=== PATIENT | female | born 1965 | race Caucasian/White ===

== ENCOUNTER → 2019-12-17 08:53 | Outpatient (BNVA) | payer OTHER, SELFPAY | PROVIDERS: Family Provider Family Medicine; PCP Family Medicine; Visit Provider Internal Medicine Cardiovascular Disease | DX: Z95.2 Presence of prosthetic heart valve (principal) | CPT/HCPCS: 85610 ==

== ENCOUNTER → 2020-01-14 08:08 | Outpatient (BNVA) | payer OTHER, SELFPAY | PROVIDERS: Family Provider Family Medicine; PCP Family Medicine; Visit Provider Internal Medicine Cardiovascular Disease | DX: Z95.2 Presence of prosthetic heart valve (principal) | CPT/HCPCS: 85610 ==

== ENCOUNTER → 2020-02-09 08:32 | Outpatient (BNVA) | payer OTHER, SELFPAY | PROVIDERS: Family Provider Family Medicine; PCP Family Medicine; Visit Provider Internal Medicine Cardiovascular Disease | DX: Z95.2 Presence of prosthetic heart valve (principal) | CPT/HCPCS: 85610 ==

== ENCOUNTER → 2020-02-11 08:39 | Outpatient (BNVA) | payer OTHER, SELFPAY | PROVIDERS: Family Provider Family Medicine; PCP Family Medicine; Referring Provider Family Medicine; Visit Provider Podiatrist Foot & Ankle Surgery | DX: M79.671 Pain in right foot (principal); M79.672 Pain in left foot; M21.41 Flat foot [pes planus] (acquired), right foot; M21.42 Flat foot [pes planus] (acquired), left foot | CPT/HCPCS: 73630 ==

== ENCOUNTER → 2020-02-16 10:49 | Outpatient (BNVA) | payer OTHER, SELFPAY | PROVIDERS: Family Provider Family Medicine; PCP Family Medicine; Visit Provider Internal Medicine Cardiovascular Disease | DX: Z95.2 Presence of prosthetic heart valve (principal) | CPT/HCPCS: 85610 ==

== ENCOUNTER → 2020-03-18 08:39 | Outpatient (BNVA) | payer OTHER, SELFPAY | PROVIDERS: Family Provider Family Medicine; PCP Family Medicine; Visit Provider Internal Medicine Cardiovascular Disease | DX: Z95.2 Presence of prosthetic heart valve (principal) | CPT/HCPCS: 85610 ==

== ENCOUNTER → 2020-03-29 08:36 | Outpatient (BNVA) | payer OTHER, SELFPAY | PROVIDERS: Family Provider Family Medicine; PCP Family Medicine; Visit Provider Internal Medicine Cardiovascular Disease | DX: Z95.2 Presence of prosthetic heart valve (principal) | CPT/HCPCS: 85610 ==

== ENCOUNTER → 2020-04-12 09:13 | Outpatient (BNVA) | payer OTHER, SELFPAY | PROVIDERS: Family Provider Family Medicine; PCP Family Medicine; Visit Provider Internal Medicine Cardiovascular Disease | DX: Z95.2 Presence of prosthetic heart valve (principal) | CPT/HCPCS: 85610 ==

== ENCOUNTER → 2020-05-10 08:43 | Outpatient (BNVA) | payer OTHER, SELFPAY | PROVIDERS: Family Provider Family Medicine; PCP Family Medicine; Visit Provider Internal Medicine Cardiovascular Disease | DX: Z95.2 Presence of prosthetic heart valve (principal); I35.8 Other nonrheumatic aortic valve disorders; Z79.01 Long term (current) use of anticoagulants | CPT/HCPCS: 85610 ==

== ENCOUNTER → 2020-05-31 08:23 | Outpatient (BNVA) | payer OTHER, SELFPAY | PROVIDERS: Family Provider Family Medicine; PCP Family Medicine; Visit Provider Internal Medicine Cardiovascular Disease | DX: Z95.2 Presence of prosthetic heart valve (principal); I35.8 Other nonrheumatic aortic valve disorders; Z79.01 Long term (current) use of anticoagulants | CPT/HCPCS: 85610 ==

== ENCOUNTER → 2020-07-02 08:44 | Outpatient (BNVA) | payer OTHER, SELFPAY | PROVIDERS: Family Provider Family Medicine; PCP Family Medicine; Visit Provider Internal Medicine Cardiovascular Disease | DX: I35.8 Other nonrheumatic aortic valve disorders (principal); Z95.2 Presence of prosthetic heart valve; Z79.01 Long term (current) use of anticoagulants | CPT/HCPCS: 85610 ==

== ENCOUNTER → 2020-08-18 08:54 | Outpatient (BNVA) | payer OTHER, SELFPAY | PROVIDERS: Family Provider Family Medicine; PCP Family Medicine; Visit Provider Internal Medicine Cardiovascular Disease | DX: Z79.01 Long term (current) use of anticoagulants (principal); Z95.2 Presence of prosthetic heart valve | CPT/HCPCS: 85610 ==

== ENCOUNTER 2020-09-01 14:23 | Outpatient (CLI) | payer OTHER, SELFPAY ==
--- NOTE | 2020-09-01 | USCV_ITS ---
Whitney Magallanes Age: 55 Gender: F : 1965 Exam Date: 09/01/2020 14:33 Ordering Phys: Josefa Welch MD ([email or web address]) Technologist: [place] Hawkins Exam Location: [facility] [place] Indication: PROSTHETIC AO VALVE BP: 138 / 80 HR: 87 Rhythm: Sinus Technical Quality: Technically difficult study MEASUREMENTS (Male / Female) Normal Values 2D ECHO LV Diastolic Diameter PLAX 3.3 cm 4.2 - 5.9 / 3.9 - 5.3 cm LV Systolic Diameter PLAX 2.5 cm LV Chamber Size 3.3 cm IVS Diastolic Thickness 1.4 cm 0.6 - 1.0 / 0.6 - 0.9 cm IVS Systolic Thickness 1.4 cm LVPW Diastolic Thickness 1.3 cm 0.6 - 1.0 / 0.6 - 0.9 cm LVPW Systolic Thickness 1.1 cm RV Chamber Size 2.8 cm LVOT Diameter 2.0 cm LV Ejection Fraction 2D Teich 51.6 % LV Ejection Fraction MOD 2C 38.3 % LV Ejection Fraction 2C AL 39.7 % LA Diameter 3.4 cm LA Width 3.2 cm LA Height 4.5 cm RA Width 2.7 cm RA Height 3.6 cm Aorta at Sinotubular Diameter 2.1 cm M-MODE LV Diastolic Diameter MM 3.5 cm 4.2 - 5.9 / 3.9 - 5.3 cm LV Systolic Diameter MM 2.3 cm LV Ejection Fraction MM Teich 67.0 % IVS Diastolic Thickness MM 1.0 cm 0.6 - 1.0 / 0.6 - 0.9 cm IVS Systolic Thickness MM 1.2 cm LVPW Diastolic Thickness MM 1.0 cm 0.6 - 1.0 / 0.6 - 0.9 cm LVPW Systolic Thickness MM 1.2 cm RV Diastolic Diameter MM 1.3 cm Aortic Annulus Diameter 3.8 cm LA Ao Ratio MM 1.0 MV E Point Septal Separation 0.9 cm DOPPLER AV Peak Velocity 287.0 cm/s LVOT Peak Velocity 130.0 cm/s AV Area Cont Eq vti 1.8 cm squared AV Area Cont Eq pk 1.5 cm squared MV Area PHT 11.0 cm squared Mitral E to A Ratio 0.9 MV E' Velocity 76.0 cm/s Mitral E to MV E' Ratio 11.7 Mitral E to LV E' Lateral Ratio 11.0 Mitral E to LV E' Septal Ratio 12.7 TR Peak Velocity 177.8 cm/s TR Peak Gradient 12.6 mmHg TR Mean Velocity 119.5 cm/s TR Mean Gradient 6.3 mmHg TR Velocity Time Integral 39.3 cm TV Peak E Velocity 74.0 cm/s Right Atrial Pressure 3.0 mmHg Pulmonary Artery Systolic Pressu 15.6 mmHg PV Peak Velocity 69.0 cm/s RV Acceleration Time 0.1 s RV Ejection Time 0.3 s RV AcT/ET 0.3 FINDINGS Left Ventricle Normal left ventricular cavity size. Normal left ventricular systolic function. No regional wall motion abnormalities. Left ventricular ejection fraction is estimated at 67 %. Grade I/IV diastolic dysfunction (abnormal relaxation filling pattern), normal to mildly elevated filling pressures. Right Ventricle The right ventricle is normal in size and function. Right Atrium The right atrium is normal in size. Left Atrium Mildly increased left atrial size. Mitral Valve Moderately thickened mitral valve. No mitral valve stenosis. No mitral valve regurgitation. Aortic Valve Bioprosthetic aortic valve sitting in normal position . Mean gradient 16.2 mmHg, RC 1.8 cm squared. Trace aortic valve regurgitation. Velocity across the aortic valve is 2.8m/s. Tricuspid Valve Structurally normal tricuspid valve without significant stenosis or regurgitation. Pulmonary artery systolic pressure is normal. Pulmonic Valve Structurally normal pulmonic valve without significant stenosis. There is no pulmonic regurgitation. Pericardium Normal pericardium without effusion. Aorta Normal ascending aorta dimension. CONCLUSIONS 1-Normal left ventricular cavity size. Normal left ventricular systolic function. No regional wall motion abnormalities. Left ventricular ejection fraction is estimated at 67 %. Grade I/IV diastolic dysfunction (abnormal relaxation filling pattern), normal to mildly elevated filling pressures. 2-Bioprosthetic aortic valve sitting in normal position . Mean gradient 16.2 mmHg, RC 1.8 cm squared. Trace aortic valve regurgitation. Velocity across the aortic valve is 2.8m/s. 3-Mildly increased left atrial size. 4-There is no pericardial effusion. 5-Pulmonary artery systolic pressure is within normal limits. 6-No significant change since the prior echocardiogram study of 03/22/2017. Josefa Welch MD (Electronically Signed) Final Date: 05 September 2020 16:24 S
== END 2020-09-01 14:24 | disposition home or self-care (01) ==
PROVIDERS: PCP Family Medicine; Visit Provider Internal Medicine Cardiovascular Disease
DX: Z95.2 Presence of prosthetic heart valve (principal); I35.1 Nonrheumatic aortic (valve) insufficiency; Z79.01 Long term (current) use of anticoagulants
CPT/HCPCS: 85610; 93306

== ENCOUNTER → 2020-09-15 08:24 | Outpatient (BNVA) | payer OTHER, SELFPAY | PROVIDERS: PCP Family Medicine; Visit Provider Internal Medicine Cardiovascular Disease | DX: Z95.2 Presence of prosthetic heart valve (principal); Z79.01 Long term (current) use of anticoagulants | CPT/HCPCS: 85610 ==

== ENCOUNTER → 2020-10-21 08:56 | Outpatient (BNVA) | payer OTHER, SELFPAY | PROVIDERS: PCP Family Medicine; Visit Provider Obstetrics & Gynecology | DX: N89.8 Other specified noninflammatory disorders of vagina (principal); N76.2 Acute vulvitis | CPT/HCPCS: 87210 ==

== ENCOUNTER → 2020-11-18 08:58 | Outpatient (BNVA) | payer OTHER, SELFPAY | PROVIDERS: PCP Family Medicine; Visit Provider Obstetrics & Gynecology | DX: N92.4 Excessive bleeding in the premenopausal period (principal); N85.9 Noninflammatory disorder of uterus, unspecified | CPT/HCPCS: 76830 ==

== ENCOUNTER → 2020-12-15 07:17 | Outpatient (BNVA) | payer OTHER, SELFPAY | PROVIDERS: PCP Family Medicine; Visit Provider Obstetrics & Gynecology | DX: Z01.812 Encounter for preprocedural laboratory examination (principal); N76.3 Subacute and chronic vulvitis; N92.4 Excessive bleeding in the premenopausal period | CPT/HCPCS: 87635 ==

== ENCOUNTER 2020-12-21 12:19 | Observation (INO) | payer OTHER, SELFPAY ==
[2020-12-17 12:27] VITALS: BMI 31.9
[2020-12-17 12:35] LABS: Basophils # 0.1 10^3/uL (0.0-0.1); Basophils % 1.3 %; Eosinophils # 0.4 10^3/uL (0.0-0.8); Eosinophils % 5.5 %; Hematocrit 44.3 % (37.0-47.0); Hemoglobin 13.7 g/dL (11.5-15.3); Lymphocytes # 1.2 10^3/uL (0.8-4.8); Lymphocytes % 15.9 %; Mean Corpuscular HGB Conc 30.9 g/dL (30.0-36.0); Mean Corpuscular Volume 90.4 fL (81-99); Mean Platelet Volume 13.6 fL (7.4-10.4); Monocytes # 0.5 10^3/uL (0.2-0.9); Monocytes % 5.8 %; Neutrophils # 5.56 10^3/uL (1.8-7.7); Neutrophils % 71.2 %; Nucleated Red Blood Cells % 0 %; Platelet Count 244 10^3/cmm (130-400); Red Cell Distribution Width 13.8 % (12.1-15.1); White Blood Count 7.8 10^3/uL (4.0-10.0)
[2020-12-17 12:36] LABS: OR HCG Qualitative Urine Negative (Negative)
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
[2020-12-17 12:50] LABS: Anion Gap 11.4 (5-19); Blood Urea Nitrogen 14 mg/dL (6-20); Calcium 9.3 mg/dL (8.5-10.5); Carbon Dioxide 27 mmol/L (22-29); Chloride 102 mmol/L (98-107); Glomerular Filtration Rate 74.7 mL/min (90-130); Glucose 83 mg/dL (65-115); Osmolality Calculated 282 mOsm/kg (285-295); Potassium 4.4 mmol/L (3.5-5.1); Sodium 136 mmol/L (136-145)
[2020-12-21] VITALS (17 sets, daily range): BP systolic 128–160; BP diastolic 73–92; PULSE 73–102; RESP 12–18; TEMP 36.3–36.9; O2SAT 92–100
[2020-12-21 09:01] LABS: OR HCG Qualitative Urine Negative (Negative)
[2020-12-21] MEDS: sodium chloride 0.9% 1,000 ML 30 ML IV (09:13)
[2020-12-21] MEDS: gabapentin 300 mg Capsule PO ×2 (09:13→20:29)
[2020-12-21] MEDS: ketorolac 30 mg/mL INJ IVP ×2 (09:16→15:13)
[2020-12-21] MEDS: heparin 5,000 unit/mL INJ 1 mL 5000 UNIT SUBCUT (09:18)
[2020-12-21] MEDS: phenazopyridine 100 mg Tablet 200 MG PO ×3 (09:29→20:28)
--- NOTE | 2020-12-21 09:29 | P.HPUD_ITS ---
Surgery/Procedure H&P Update DATE OF PROCEDURE: December 21, 2020 DATE H&P PERFORMED: 12/17/20 H&P UPDATE INFORMATION: I have reviewed H&P completed within last 30 days, I have examined patient prior to procedure, No changes to prior documentation and H&P is in [facility] [place] EMR on date indicated PREOP DIAGNOSIS: Abnormal perimenopausal bleeding, Vulvitis PLANNED PROCEDURE: Operation Date: 12/21/20 10:00 Proposed Procedures p Total Laparoscopic Hysterectomy [id number] N92.4 N76.2(Not Applicable) - Roman Denise MD s bilateral Laparoscopic Salpingo Oophorectomy with possible vulvar biopsy(Bilateral) - Roman Denise MD
--- NOTE | 2020-12-21 09:32 | P.ANESUD_ITS ---
Pre-Anesthetic Update Pre-Anesthetic Assessment: Date of Surgery/Procedure: 12/21/20 Preop Rosanna gnosis: Abnormal perimenopausal bleeding, Vulvitis Proposed Procedure: Operation Date: 12/21/20 10:00 Proposed Procedures p Total Laparoscopic Hysterectomy 29299 [id number] N92.4 N76.2(Not Applicable) - Roman Denise MD s bilateral Laparoscopic Salpingo Oophorectomy with possible vulvar biopsy(Bilateral) - Roman Denise MD Any changes to Pre-Anesthetic Assessment?: No Last Intake: Intake Last Liquid Date 12/20/20 Last Liquid Time 18:30 Last Solid Date 12/20/20 Last Solid Time 18:30 Labs Last 48hrs: Laboratory Results - last 48 hr 12/21/20 08:59 Urine HCG, Qual Negative Vitals: Temperature 97.7 F 12/21/20 08:57 Temperature Source Temporal Artery S can 12/21/20 08:57 Pulse Rate 97 12/21/20 08:57 Pulse Rhythm 12/21/20 08:55 Pulse Strength 3+ Normal 12/21/20 08:55 Respiratory Rate 18 12/21/20 08:57 Blood Pressure 160/92 12/21/20 08:57 Blood Pressure Lisa n 114 12/21/20 08:57 Pulse Oximetry 97 12/21/20 08:57 Oxygen Delivery Me thod 12/21/20 08:57 Exam: Pre-Anes Outpt Exam: alert, oriented x 3, clear to auscultation bilaterally and regular rate & rhythm Cardiac Studies: 2 No Data to Display
--- NOTE | 2020-12-21 11:13 | SUR.OPER ---
Called and notified spouse of surgical progress.
--- NOTE | 2020-12-21 12:13 | P.OP_ITS ---
Operative Report Date of procedure: December 21, 2020 Pre-op Diagnosis: Abnormal perimenopausal bleeding, Vulvitis Post-op Diagnosis: Abnormal perimenopausal bleeding, Vulvitis Procedure Done: Total laparoscopic hysterectomy with bilateral salpingo- oophorectomy Specimens removed/disposition: Uterus, cervix, bilateral tubes and ovaries. Surgeon: Roman Denise Anesthesia: General Estimated blood loss (mL): 50 IV fluids (mL): 1,300 Complications: None Findings: Minimal to no uterine prolapse. Narrow vagina. Left cornual fibroid noted. Portions of right and left fallopian tube surgically absent. Scarring on the anterior lower uterine segment with findings suspicious for old endometriosis. Whitish skin discoloration with thin skin that tore easily around the urethra and extending up to the clitoral area. Area appears consistent with lichen sclerosis. Brief History: 55-year-old nulligravida status post endometrial ablation in 2012. She had had no bleeding since the ablation until approximately 1 year ago when she started having initially spotting off and on which had become a little more heavier. Typically the bleeding will last for 1 to 2 days occurring at least every week. She reports no definite pattern to the bleeding. Because of the ablation, evaluation of the endometrial lining was not possible and as a result recommendation was to proceed with a hysterectomy. Procedure: The patient was taken to the operating room where general anesthesia was obtained. She was prepped and draped in the usual sterile fashion in the dorsal supine position with legs in Jermaine style stirrups. Sequential compression boots were placed prior to starting the case. Cool catheter was inserted and exam under anesthesia was performed. She was found to have minimal to no uterine prolapse. She had a very narrow vagina. Whitish skin discoloration present sandor und the urethra and extending up to the periclitoral area. Whitish discoloration also present along the labia minora and extending to the perineal area. This is all consistent with lichen sclerosis. Using handheld retractors, the cervix was able to be visualized and grasped with a single-tooth tenaculum. FS-30 Fornisee uterine manipulator was placed with difficulty due to the narrow vagina. The infraumbilical region was injected with 2% lidocaine with epinephrine. Skin incision was made with a knife in the lower edge of the navel and a size 10/11 trocar and sheath were inserted under direct visualization using an Optiview type technique. Trocar was removed and replaced with just the laparoscope confirming intra-abdominal placement. The anterior abdominal wall was inspected and noted to be free of adhesions. In the right and left lower quadrants, lateral to the inferior epigastric vessels, the skin was injected with 2% lidocaine with epinephrine. Skin incisions were made with the knife and a 5 mm trocar and sheath were inserted under direct visualization at each site. Approximately 2 cm above the pubic symphysis in the midline, the skin was injected with 2% lidocaine with epinephrine. Skin incision was made with a knife and a 5 mm trocar and sheath were inserted under direct visualization. The pelvis was thoroughly inspected. Midportion of both fallopian tubes were surgically absent. She had scarring with powder burn lesion in the anterior lower uterine segment area of the uterus consistent with endometriosis. An inclusion type cyst was also noted adjacent to this. No other areas of definite endometriosis were seen. Using the Voyant sealing device, the left infundibulopelvic ligament was sealed and cut and the dissection carried along the underlying mesovarian and mesosalpinx until the round ligament was reached adjacent to the uterus. The round ligament was cauterized and cut and the dissection carried along the lateral aspect of the uterus to approximately the level of the internal os. The broad ligament was and dissection carried over the lower uterine segment. Using the Voyant sealingdevice, the right infundibulopelvic ligament was sealed and cut and the dissection carried along the underlying mesovarium and mesosalpinx until the round ligament was reached adjacent to the uterus. The round ligament was cauterized and cut and the dissection carried along the lateral aspect of the uterus to approximate the level of the internal os. The broad ligament was and the dissection carried over the lower uterine segment to meet with the dissection from the contralateral side. The bladder was dissected away from the lower uterine segment. The uterine vessels were sealed at the level of the cervix and cut bilaterally. Using monopolar cautery with the hook attachment, the vagina was opened anteriorly to the edge of the cup of the uterine manipulator. Using the cup as a guide, the vagina was opened circumferentially around the cervix. Once the cervix was completely free from the vagina, the uterus was removed through the vagina. Minimal bleeding was present from the vaginal cuff. Using 2-0 PDS barbed suture, the cuff was closed in a running fashion . This was started on the right side and was carried across to the left side. Care was taken to incorporate the peritoneum posteriorly and the vaginal mucosa anteriorly and posteriorly into the closure. The anterior peritoneum at the vaginal cuff was closed over top of the vaginal cuff itself using the 2-0 PDS suture. The cuff was noted to be hemostatic. The pelvis was thoroughly irrigated and noted to be hemostatic except for a small area of bleeding just outside of the sutured area on the left side. Area was cauterized with monopolar cautery. It continued to ooze in the area and direct pressure was held to the area for approximately 5 minutes. Small trickle was still present but by the time the rest of the pelvis was thoroughly inspect ed again it had stopped bleeding. However, as a precautionary measure, Surgicel was placed over the area as well. The areas of dissection were inspected under normal and low pressure at the end of the procedure. The abdomen was deflated and the ports removed. The 5 mm sites were closed with single stitches of 4-0 Vicryl suture. The umbilical site was closed with a deep stitch of 4-0 Vicryl suture followed by subcuticular closure of the skin. Steri-Strips were applied. The vagina was inspected and the cuff was noted to be reapproximated well. The cuff itself was noted to be hemostatic vaginally. Patient tolerated the procedures well. Sponge needle and instrument counts were correct. DRAINS: Cool catheter POSTOPERATIVE STATUS: The patient was transferred to the recovery room in satisfactory condition.
--- NOTE | 2020-12-21 13:05 | PC.NURSE ---
pt received to floor from OR. pt moved self to bed. oriented to room/call light. instructed not to get out of bed without assistance.
[2020-12-21] MEDS: simethicone 80 mg Chew PO (14:03)
[2020-12-21] MEDS: morphine 4 mg/mL SDV 1 mL IVP (14:03)
[2020-12-21] MEDS: dextrose 5%-lactated ringers 1,000 ML 125 ML IV (15:21)
[2020-12-21] MEDS: HYDROcodone-acetaminophen 5-325 mg Tablet PO (16:21)
--- NOTE | 2020-12-21 16:39 | ANE.PACU2 ---
Inpatient post-anesthesia follow up: Airway intact: Yes Vital signs: Temperature 98.4 F Pulse Rate 102 Respiratory Rate 16 Blood Pressure 147/81 Pulse Oximetry 99 Oxygen Delivery Me thod Room Air Oxygen Flow Rate 8 Fraction of Inspir ed Oxygen Hydration adequate: Yes Nausea and vomiting: No Pain level: 1 Mental status: Baseline
[2020-12-21] MEDS: ondansetron 2 mg/ML SDV 2 mL 4 MG IVP (17:15)
[2020-12-21] MEDS: ibuprofen 800 mg tablet PO (20:28)
[2020-12-21] MEDS: enoxaparin 80 mg/0.8 mL Syringe SUBCUT (20:30)
[2020-12-22] MEDS: dextrose 5%-lactated ringers 1,000 ML 125 ML IV (01:10)
[2020-12-22 04:00] VITALS: BP 120/79; PULSE 90; RESP 16; TEMP 36.7
[2020-12-22 06:39] LABS: Hematocrit 39.2 % (37.0-47.0); Hemoglobin 12.3 g/dL (11.5-15.3); Mean Corpuscular HGB Conc 31.4 g/dL (30.0-36.0); Mean Corpuscular Hemoglobin 28.5 pg (28.0-34.0); Mean Corpuscular Volume 90.7 fL (81-99); Mean Platelet Volume 14.1 fL (7.4-10.4); Platelet Count 180 10^3/cmm (130-400); Red Blood Count 4.32 10^6/uL (4.1-5.3); Red Cell Distribution Width 14.2 % (12.1-15.1); White Blood Count 10.6 10^3/uL (4.0-10.0)
[2020-12-22] MEDS: enoxaparin 80 mg/0.8 mL Syringe SUBCUT (08:03)
[2020-12-22] MEDS: phenazopyridine 100 mg Tablet 200 MG PO (08:03)
[2020-12-22] MEDS: ibuprofen 800 mg tablet PO (08:03)
[2020-12-22] MEDS: levothyroxine 75 mcg Tablet PO (08:03)
[2020-12-22 08:10] VITALS: BP 127/82; PULSE 102; RESP 15
--- NOTE | 2020-12-22 09:09 | P.DS_ITS ---
Discharge Providers Date of Admission: 12/21/20 12:19 Date of Discharge: December 22, 2020 Attending Provider at Admission: Roman Denise MD Attending Provider at Discharge: Roman Denise MD Primary Care Provider: Elizabet Rodriguez MD Diagnoses at Discharge Discharge Diagnosis (1) Abnormal perimenopausal bleeding: Status: Acute (2) Chronic anticoagulation: Status: Acute (3) H/O mechanical aortic valve replacement: Status: Acute Permanent problem details: hx of bicuspid aortic valve, severe aortic stenosis. Replaced with St Calos 21 mm mechanical valve by Dr. Denton on 12/27/2012 Reason for Visit Reason for Visit: total lap hysterectomy Hospital Course Hospital Course Patient is a 55-year-old, female, nulligravida, who is status post endometrial ablation in 2012. Following the ablation, she had had no vaginal bleeding until approximately 1 year ago when she started having spotting off and on. This is now become heavier with no pattern to the bleeding. She says she will bleed at least once a week with the bleeding lasting 1 to 2 days at a time. Ultrasound had been performed which showed a very distorted endometrial lining with findings suspicious for fibroids. Because of the ablation, endometrial sampling is unable to be performed to rule out cancer as a potential cause for the abnormal bleeding. As a result, hysterectomy is recommended and she is presenting for that at this time. In addition she was being treated for chronic vulvitis, suspected as being lichen sclerosis. Potential need for biopsies had been discussed in the office and depending upon the appearance at the time of her scheduled surgery, biopsy may be performed at that time. In addition, she is on chronic anticoagulation due to having a mechanical aortic valve. As a result, she was switched from her Coumadin to Lovenox prior to surgery. Her last dose of Lovenox was the night before surgery. Patient presented for surgery on 12/21. She received subcu heparin approximately 30 minutes before surgery. She had a total laparoscopic hysterectomy with bilateral salpingo-oophorectomy. Vulvar biopsies were not needed. Following surgery, she was doing well overall. However, she was still nauseated in the evening and as a result was kept through the night. She was restarted on Lovenox in the evening. Postoperative Day 1 This morning, patient reports doing well. She states that her pain is well controlled with pain pills. She denies any lightheadedness or dizziness with ambulation. She denied any shortness of breath or chest pains. She reports tolerating a regular diet this morning without nausea or vomiting. She denies any problems with urination following removal of the catheter early this morning. She is requesting to go home. Physical exam: See below Plan Patient is being restarted on her usual regimen of Coumadin this evening. She will be continued on Lovenox for 3 more days. She was instructed to resume her other usual home medications. She is being prescribed [place] 5/325 mg and ibuprofen 800 mg for pain. Discharge to home. Discharge instructions discussed with patient. She is to follow-up in the office in 2 and 6 weeks. Physical Exam Const: COMMON NORMALS: no acute distress, average body habitus, alert and well nourished GENERAL APPEARANCE: well developed ORIENTATION/CONSCIOUSNESS: Yes oriented to person, Yes oriented to place and Yes oriented to time Resp: COMMON NORMALS: normal respiratory effort and clear to auscultation bilaterally AUSCULTATION: clear to auscultation bilaterally Cardio: COMMON NORMALS: regular rate, regular rhythm, No gallops present (Cardio), No murmurs present (Cardio) and No rub (Cardio) RATE: regular rate RHYTHM: regular rhythm GI: COMMON NORMALS: Soft to palpation, No hepatosplenomegaly present and no masses INSPECTION: Yes abdominal wall ecchymosis (At Lovenox injection sites and trocar sites.) and Yes incision (Well approximated with skin glue present.) AUSCULTATION: Yes normoactive bowel sounds PALPATION: Yes Soft to palpation, Yes Tenderness to palpation present (GI) (Lower abdomen), Yes No hepatosplenomegaly present and No Hernia present : EXTERNAL FEMALE EXAM: No Hernia present Extremity: COMMON NORMALS: no clubbing, cyanosis or edema and no calf tenderness Neuro: SENSORIUM/ORIENTATION: Yes alert, Yes oriented to person, Yes oriented to place and Yes oriented to time Psych: COMMON NORMALS: normal affect MOOD & AFFECT: Yes euthymic mood Urinary Catheter Management^: Cool: Cath Placed During This Visit: yes, but has since been removed by the nurse Reason for Continuing Indwelling Catheter: Perioperative Use in Selected Surgeries Urinary Catheter Date of Insertion: 12/21/20 Urinary Catheter Time of Insertion: 10:10 Date Urinary Catheter Removed: 12/22/20 Time Urinary Catheter Discontinued: 03:00 Discharge Data Data Completed and Pending: Pending at discharge Category Date Time Status ES surgery / GI i mages Routine Exams 12/21/20 09:33 Taken Pathology: Surgic al [PTH] Routine Pth 12/21/20 12:28 Received Labs from last 24 hours 12/22/20 12/21/20 05:15 09:09 WBC 10.6 H RBC 4.32 Hgb 12.3 Hct 39.2 MCV 90.7 MCH 28.5 MCHC 31.4 RDW 14.2 Plt Count 180 MPV 14.1 H Blood Type A Positive Rho(D) Type Positive Antibody Screen Negative Vitals: Last Vital Signs Temp 98.0 F 12/22/20 04:00 Pulse 102 H 12/22/20 08:10 Resp 15 12/22/20 08:10 BP 127/82 12/22/20 08:10 Pulse Ox 98 12/21/20 18:41 Discharge Plan Discharge Patient Disposition: Home Condition: Stable Prescriptions: New hydrocodone-acetaminophen 5-325 mg Tablet 1 - 2 tab PO Q6H PRN (Reason: Moderate To Severe Pain) Qty: 20 RF: 0 Continued aspirin 81 mg tablet,chewable 81 mg PO ONCE RF: 0 levothyroxine 75 mcg capsule 75 mcg PO ONCE RF: 0 gabapentin 300 mg capsule 300 mg PO .hs RF: 0 simvastatin 40 mg tablet 40 mg PO ONCE RF: 0 cyclobenzaprine 5 mg tablet 5 mg PO .hs RF: 0 clobetasol [Temovate] 0.05 % cream 1 applic topical BID Qty: 45 RF: 12 enoxaparin [Lovenox] 80 mg/0.8 mL syringe 80 mg SUBCUT Q12H Qty: 8 RF: 0 Coumadin 4 mg Tablet 4 mg PO DAILY RF: 0 Coumadin 5 mg Tablet 5 mg PO QPM RF: 0 Discharge Orders: Discharge Order (Routine); Ordered 12/22/20 Ordered By: Roman Denise Referrals: Roman Denise MD [Physician] - 01/05/21 9:45 am (* Your incision check is with Dr. Denise on 01/05/2021 at 9:45am. * Your 6 week follow up appointment is with Dr. Denise on 02/02/2021 at 9:45am) Discharge Diet: Regular Discharge Activity: Limit activity as instructed Patient Instructions: Laparoscopically Assisted Vaginal Hysterectomy (DC), Laparoscopic Salpingo-oophorectomy (DC), Laparoscopic Hysterectomy (DC), OB Abdominal Surgery - [facility], OB Discharge Report, OB Food/Drug Interaction Guide Activity Restrictions/Additional Instructions: Take [id number] ibuprofen 200 mg, 3 tablets 4 times a day or 4 tablets 3 times a day, as needed for pain. Discharge Attestations Time Spent in Discharge Care*: less than 30 min Quality Metrics Clinical Quality Measures During this hospital stay, did patient experience: None Coding Level of Care Code Acute Weighbridge Operator for Chg Fwd Diagnoses Abnormal perimenopausal bleeding N92.4 Chronic anticoagulation Z79.01 H/O mechanical aortic valve replacement Z95.2
[2020-12-22 10:54] VITALS: BP 135/82; PULSE 111; RESP 17; O2SAT 99
[2020-12-22 11:20] VITALS: BP 135/82; PULSE 111; RESP 17; TEMP 36.7; O2SAT 99
== END 2020-12-22 11:10 | disposition home or self-care (01) ==
LOC: OBGYN 12:19
PROVIDERS: Admitting Provider Obstetrics & Gynecology; PCP Family Medicine; Visit Provider Obstetrics & Gynecology
PROC: 0UT94ZZ Resection of Uterus, Percutaneous Endoscopic Approach (ICD-10-PCS; CPT 58571; principal; 2020-12-21 10:00)
PROC: (CPT 58661; 2020-12-21 10:00)
DX: N92.4 Excessive bleeding in the premenopausal period (principal); Z95.2 Presence of prosthetic heart valve; Z79.01 Long term (current) use of anticoagulants
CPT/HCPCS: 58571; 12345; 36415; 80048; 81025; 84703; 85025; 85027; 86850; 86900; 87086; 88307; 96372; G0378; J0131; J0690; J1644; J1650; J1885; J2250; J2270; J2405; J2704; J2710; J3010; J3490; J7030

== ENCOUNTER → 2021-05-04 11:25 | Outpatient (BNVA) | payer OTHER, SELFPAY | PROVIDERS: PCP Family Medicine; Visit Provider Nurse Practitioner Women's Health | DX: R30.0 Dysuria (principal); N76.0 Acute vaginitis; B96.89 Other specified bacterial agents as the cause of diseases classified elsewhere; N89.8 Other specified noninflammatory disorders of vagina; N76.3 Subacute and chronic vulvitis; Q52.5 Fusion of labia; Z79.01 Long term (current) use of anticoagulants | CPT/HCPCS: 81000; 87077; 87086; 87184 ==

== ENCOUNTER → 2021-05-24 09:00 | Outpatient (BNVA) | payer OTHER, SELFPAY | PROVIDERS: PCP Family Medicine; Visit Provider Internal Medicine Cardiovascular Disease | DX: Z95.2 Presence of prosthetic heart valve (principal); Z79.01 Long term (current) use of anticoagulants | CPT/HCPCS: 85610 ==

== ENCOUNTER → 2021-05-31 08:27 | Outpatient (BNVA) | payer OTHER, SELFPAY | PROVIDERS: PCP Family Medicine; Visit Provider Internal Medicine Cardiovascular Disease | DX: Z79.01 Long term (current) use of anticoagulants (principal); Z95.2 Presence of prosthetic heart valve | CPT/HCPCS: 85610 ==

== ENCOUNTER → 2021-06-02 17:03 | Outpatient (BNVA) | payer OTHER, SELFPAY | PROVIDERS: PCP Family Medicine; Visit Provider Obstetrics & Gynecology | DX: L90.0 Lichen sclerosus et atrophicus (principal) | CPT/HCPCS: 88305 ==

== ENCOUNTER → 2021-08-03 10:31 | Outpatient (BNVA) | payer OTHER, SELFPAY | PROVIDERS: PCP Family Medicine; Visit Provider Nurse Practitioner Family | DX: Z20.822 Contact with and (suspected) exposure to COVID-19 (principal) | CPT/HCPCS: 87635 ==

== ENCOUNTER 2021-08-05 09:51 | Outpatient (CLI) | payer OTHER, SELFPAY ==
[2021-08-05 10:15] VITALS: BP 115/76; PULSE 92; RESP 16; TEMP 37; O2SAT 97; BMI 30.9
[2021-08-05 10:44] VITALS: BP 104/71; PULSE 88; RESP 18; TEMP 37.1; O2SAT 93
[2021-08-05 11:46] VITALS: BP 117/68; PULSE 91; RESP 18; TEMP 36.9; O2SAT 93
--- NOTE | 2021-08-15 17:50 | PC.SOCIAL ---
63-8, 3891 antibody infusion follow up call: symptoms prior to infusion: fever, nausea, exhaustion, headache, no taste patient reports she remains tired but other symptoms have improved.
== END 2021-08-05 09:52 | disposition home or self-care (01) ==
LOC: OPS 09:52
PROVIDERS: PCP Family Medicine; Visit Provider Nurse Practitioner Family
DX: U07.1 COVID-19 (principal)
CPT/HCPCS: 96365

== ENCOUNTER → 2022-12-19 08:11 | Outpatient (BNVA) | payer OTHER, SELFPAY | PROVIDERS: PCP Family Medicine; Visit Provider Internal Medicine Cardiovascular Disease | DX: Z95.2 Presence of prosthetic heart valve (principal) | CPT/HCPCS: 85610 ==

== ENCOUNTER → 2023-01-09 09:30 | Outpatient (BNVA) | payer OTHER, SELFPAY | PROVIDERS: PCP Family Medicine; Visit Provider Surgery | DX: R10.9 Unspecified abdominal pain (principal); K56.7 Ileus, unspecified | CPT/HCPCS: 74018 ==

== ENCOUNTER → 2023-01-16 08:13 | Outpatient (BNVA) | payer OTHER, SELFPAY | PROVIDERS: PCP Family Medicine; Visit Provider Internal Medicine Cardiovascular Disease | DX: Z95.2 Presence of prosthetic heart valve (principal) | CPT/HCPCS: 85610 ==

== ENCOUNTER → 2023-02-12 08:19 | Outpatient (BNVA) | payer OTHER, SELFPAY | PROVIDERS: PCP Family Medicine; Visit Provider Internal Medicine Cardiovascular Disease | DX: Z95.2 Presence of prosthetic heart valve (principal) | CPT/HCPCS: 85610 ==

== ENCOUNTER → 2023-03-14 08:53 | Outpatient (BNVA) | payer OTHER, SELFPAY | PROVIDERS: PCP Family Medicine; Visit Provider Internal Medicine Cardiovascular Disease | DX: Z95.2 Presence of prosthetic heart valve (principal) | CPT/HCPCS: 85610 ==

== ENCOUNTER 2023-03-28 09:25 | Outpatient (CLI) | payer OTHER, SELFPAY ==
--- NOTE | 2023-03-28 09:42 | XRR_ITS ---
PROCEDURE INFORMATION: Exam: XR Lumbosacral Spine Exam date and time: 03/28/2023 9:44 AM Age: 57 years old Clinical indication: Low back pain; Additional info: Dorsalgia, unspecified TECHNIQUE: Imaging protocol: Radiologic exam of the lumbosacral spine. Views: 4 or 5 views. Total images: 5 COMPARISON: CT chest abdpel w/*[id number] 12/07/2016 3:11 PM FINDINGS: Bones/joints: L2-L3 degenerative disc disease with disc space narrowing and osteophyte formation. This finding is stable when compared to the prior exam. Vertebral body heights are maintained. No evidence of spondylolysis nor spondylolisthesis. Mild disc space height loss at L5/S1. This finding is stable when compared to the prior exam. Soft tissues: Unremarkable. XR/XR lumbar spine min 4V [id number] IMPRESSION: Degenerative changes as described above but no acute pathology detected.
== END 2023-03-28 09:26 | disposition home or self-care (01) ==
PROVIDERS: PCP Family Medicine; Visit Provider Family Medicine
DX: M51.36 Other intervertebral disc degeneration, lumbar region (principal); M48.061 Spinal stenosis, lumbar region without neurogenic claudication
CPT/HCPCS: 72110

== ENCOUNTER → 2023-04-11 08:12 | Outpatient (BNVA) | payer OTHER, SELFPAY | PROVIDERS: PCP Family Medicine; Visit Provider Internal Medicine Cardiovascular Disease | DX: Z95.2 Presence of prosthetic heart valve (principal) | CPT/HCPCS: 85610 ==

== ENCOUNTER → 2023-04-17 09:28 | Outpatient (BNVA) | payer OTHER, SELFPAY | PROVIDERS: PCP Family Medicine; Visit Provider Internal Medicine Cardiovascular Disease | DX: Z95.2 Presence of prosthetic heart valve (principal) | CPT/HCPCS: 85610 ==

== ENCOUNTER → 2023-05-24 09:11 | Outpatient (BNVA) | payer OTHER, SELFPAY | PROVIDERS: PCP Family Medicine; Visit Provider Internal Medicine Cardiovascular Disease | DX: Z95.2 Presence of prosthetic heart valve (principal) | CPT/HCPCS: 85610 ==

== ENCOUNTER → 2023-06-21 08:55 | Outpatient (BNVA) | payer OTHER, SELFPAY | PROVIDERS: PCP Family Medicine; Visit Provider Internal Medicine Cardiovascular Disease | DX: Z95.2 Presence of prosthetic heart valve (principal) | CPT/HCPCS: 85610 ==

== ENCOUNTER 2023-06-27 08:43 | Outpatient (CLI) | payer OTHER, SELFPAY ==
--- NOTE | 2023-06-27 09:10 | MM_ITS ---
WS: [email or web address] BILATERAL SCREENING DIGITAL TOMOSYNTHESIS MAMMOGRAM WITH CAD HISTORY: Z12.39 - Encounter for other screening for malignant neop... COMPARISON: 01/28/2019, 08/14/2018 Bilateral CC and MLO views with tomosynthesis and synthetic mammography submitted. Computer aided det ection analyzed. Breast composition: There are scattered areas of fibroglandular density. Focal architectural distorti on and scarring in the anterior right breast is stable from prior trauma. Benign calcifications. IMPRESSION: MM/[place] [id number] BI-RADS: 2-Benign FOLLOW UP: 1 Year Follow-up
== END 2023-06-27 08:44 | disposition home or self-care (01) ==
PROVIDERS: PCP Family Medicine; Visit Provider Nurse Practitioner Women's Health
DX: Z12.31 Encounter for screening mammogram for malignant neoplasm of breast (principal)
CPT/HCPCS: 77063; 77067

== ENCOUNTER → 2023-07-19 08:11 | Outpatient (BNVA) | payer OTHER, SELFPAY | PROVIDERS: PCP Family Medicine; Visit Provider Internal Medicine Cardiovascular Disease | DX: Z95.2 Presence of prosthetic heart valve (principal) | CPT/HCPCS: 85610 ==

== ENCOUNTER 2023-08-14 14:52 | Outpatient (CLI) | payer OTHER, SELFPAY ==
--- NOTE | 2023-08-14 14:57 | CT_ITS ---
WS: [email or web address] CT ABDOMEN PELVIS TECHNIQUE: Contrast-enhanced CT of the abdomen and pelvis with coronal and sagittal reformatted image s. CLINICAL INFORMATION: CHRONIC ABDOMINAL PAIN AFTER HYSTERECTOMY COMPARISON: 2017 DLP: 603.[address] scans at [facility] use at least one of these dose optimization techniques: automated e xposure control; mA and/or kV adjustment per patient size (includes targeted exams where dose is matc hed to clinical indication); or iterative reconstruction. FINDINGS: Lung bases are well aerated. Diffuse fatty filtration of the liver. Normal portal vein and splenic ve in. Fatty atrophy of the pancreas. Gallbladder appears normal. Normal spleen. Adrenal glands are norm al. Normal renal parenchymal enhancement. No hydronephrosis. Small RIGHT renal cyst. Celiac and SMA a re patent. Normal caliber abdominal aorta. Prior hysterectomy. Trace free fluid in the pelvis. Tortuous sigmoid colon. Mobile cecum displaced in to the LEFT lower abdomen. No abdominal or pelvic lymphadenopathy. No inguinal lymphadenopathy. Mild lumbar curve. Low-attenuation lesion in the LEFT gluteus measuring 5.5 x 4.4 cm increased in size since 2017. This is indeterminant with fluid attenuation. This can be further evaluated with ultrasound. IMPRESSION: 1. Prior postoperative changes hysterectomy. No evidence of pelvic hematoma or abscess. Trace free f luid in the pelvis. 2. Small RIGHT renal cyst. No hydronephrosis in either kidney. 3. LEFT gluteus low-attenuation collection measuring 5.5 x 4.4 cm increased since 2017. This could b e further evaluated with ultrasound. 4. No other acute findings.
[2023-08-14] MEDS: iohexol 350 mg/mL 500 mL Btl (per mL) PO (15:57)
[2023-08-14] MEDS: iohexol 350 mg/mL 500 mL Btl (per mL) IV (16:37)
== END 2023-08-14 14:53 | disposition home or self-care (01) ==
PROVIDERS: Visit Provider Family Medicine
DX: R10.9 Unspecified abdominal pain (principal); G89.29 Other chronic pain; Z90.710 Acquired absence of both cervix and uterus; N28.1 Cyst of kidney, acquired
CPT/HCPCS: 74177; Q9967

== ENCOUNTER → 2023-08-15 10:25 | Outpatient (BNVA) | payer OTHER, SELFPAY | PROVIDERS: Visit Provider Internal Medicine Cardiovascular Disease | DX: Z95.2 Presence of prosthetic heart valve (principal) | CPT/HCPCS: 85610 ==

== ENCOUNTER → 2023-09-13 13:17 | Outpatient (BNVA) | payer OTHER, SELFPAY | PROVIDERS: Visit Provider Nurse Practitioner Family | DX: Z20.822 Contact with and (suspected) exposure to COVID-19 (principal); U07.1 COVID-19 | CPT/HCPCS: 87426 ==

== ENCOUNTER 2023-09-24 07:11 | Outpatient (CLI) | payer OTHER, SELFPAY ==
--- NOTE | 2023-09-24 07:16 | US_ITS ---
WS: [email or web address] ULTRASOUND SOFT TISSUES LEFT gluteal region. HISTORY: MYALGIA,OTHER SITE/L GLUTEAL PAIN COMPARISON: 08/14/2023 TECHNIQUE: 2-D and color Doppler imaging is submitted. Solid mass with mild increased vascularity centered in the LEFT gluteal region. This is a solid mass with slightly lobulated margins measuring 4.3 x 5.2 x 4.4 cm. There is mild diffuse increased vascula rity. This corresponds to the mass seen on the recent CT of 08/14/2023. IMPRESSION: Solid mass LEFT gluteal region measuring 4.3 x 5.2 x 4.4 cm. This needs to be further evaluated for p ossible neoplasm such as sarcoma.
== END 2023-09-24 07:12 | disposition home or self-care (01) ==
LOC: RAD 07:11
PROVIDERS: Visit Provider Family Medicine
DX: M79.18 Myalgia, other site (principal); R22.2 Localized swelling, mass and lump, trunk
CPT/HCPCS: 76882

== ENCOUNTER → 2023-10-08 08:14 | Outpatient (BNVA) | payer OTHER, SELFPAY | PROVIDERS: Visit Provider Internal Medicine Cardiovascular Disease | DX: Z95.2 Presence of prosthetic heart valve (principal) | CPT/HCPCS: 85610 ==

== ENCOUNTER → 2023-11-01 08:21 | Outpatient (BNVA) | payer OTHER, SELFPAY | PROVIDERS: Visit Provider Internal Medicine Cardiovascular Disease | DX: Z95.2 Presence of prosthetic heart valve (principal) | CPT/HCPCS: 85610 ==

== ENCOUNTER 2023-11-21 12:10 | Outpatient (CLI) | payer OTHER, SELFPAY ==
--- NOTE | 2023-11-21 13:15 | US_ITS ---
WS: [email or web address] ULTRASOUND GUIDED BIOPSY LEFT GLUTEAL SOLID MASS. HISTORY: M79.18 - Myalgia, other site Procedure, risks, and complications are explained to the patient. Consent was obtained. Skin is clean sed with ChloraPrep and anesthetized with 1% buffered lidocaine. There is a solid-appearing mass with minimal increased vascularity centered in the region of the LEFT gluteal muscles. This mass was also recently described on CT. This mass has slowly increased in size since 2017. Under sterile condition this mass is localized. Biopsies performed with an 18-gauge achieve needle. N umerous biopsies are performed. Approximately 6 samples are obtained and placed in formalin. No compl ications are encountered. IMPRESSION: Ultrasound-guided biopsy solid mass in the LEFT gluteal region. No complications. Final pathology res ult pending.
== END 2023-11-21 12:11 | disposition home or self-care (01) ==
LOC: RAD 12:11
PROVIDERS: Visit Provider Surgery
DX: M79.18 Myalgia, other site (principal)
CPT/HCPCS: 76942; 88307

== ENCOUNTER → 2023-11-27 08:18 | Outpatient (BNVA) | payer OTHER, SELFPAY | PROVIDERS: Visit Provider Internal Medicine | DX: Z95.2 Presence of prosthetic heart valve (principal) | CPT/HCPCS: 85610 ==

== ENCOUNTER → 2023-12-11 08:29 | Outpatient (BNVA) | payer OTHER, SELFPAY | PROVIDERS: Visit Provider Internal Medicine | DX: Z95.2 Presence of prosthetic heart valve (principal) | CPT/HCPCS: 85610 ==

== ENCOUNTER → 2024-01-08 07:49 | Outpatient (BNVA) | payer OTHER, SELFPAY | PROVIDERS: Visit Provider Internal Medicine | DX: Z95.2 Presence of prosthetic heart valve (principal) | CPT/HCPCS: 85610 ==

== ENCOUNTER → 2024-02-21 08:38 | Outpatient (BNVA) | payer OTHER, SELFPAY | PROVIDERS: Visit Provider Internal Medicine | DX: Z95.2 Presence of prosthetic heart valve (principal) | CPT/HCPCS: 85610 ==

== ENCOUNTER → 2024-03-05 08:14 | Outpatient (BNVA) | payer OTHER, SELFPAY | PROVIDERS: Visit Provider Internal Medicine | DX: Z95.2 Presence of prosthetic heart valve (principal) | CPT/HCPCS: 85610 ==

== ENCOUNTER 2024-03-19 07:53 | Outpatient (CLI) | payer OTHER, SELFPAY ==
--- NOTE | 2024-03-19 08:00 | USCV_ITS ---
Whitney Magallanes Age: 58 Gender: F : 1965 Exam Date: 03/19/2024 08:16 Ordering Phys: Shazia Boo Technologist: Exam Location: [facility] [place] Indication: ao pros BP: 137 / 84 HR: 71 Rhythm: Sinus Technical Quality: Adequate MEASUREMENTS (Male / Female) Normal Values 2D ECHO LVOT Diameter 2.0 cm LV Ejection Fraction MOD 2C 66.4 % LV Ejection Fraction 2C AL 66.8 % LA Diameter 4.1 cm RA Systolic Volume 4C AL 36.9 ml RA Systolic Volume 4C MOD 35.7 ml LA Sys Volume AL 77.0 cm cubed LA Sys Volume Index AL 38.1 cm cubed/m squared DOPPLER AV Peak Velocity 218.0 cm/s LVOT Peak Velocity 107.0 cm/s AV Area Cont Eq vti 1.7 cm squared AV Area Cont Eq pk 1.5 cm squared MV Peak Velocity 146.0 cm/s MV Area PHT 3.3 cm squared Mitral E to A Ratio 1.2 TR Peak Velocity 118.0 cm/s TR Peak Gradient 5.6 mmHg TV Peak E Velocity 82.0 cm/s Right Atrial Pressure 3.0 mmHg Pulmonary Artery Systolic Pressu 8.6 mmHg PV Peak Velocity 91.0 cm/s FINDINGS Left Ventricle Left ventricle is normal in size. LV systolic function is normal with EF of 55 to 60%. No regional wall motion abnormalities are seen. Right Ventricle Normal in size and function. Right Atrium Normal size. Left Atrium Dilated Mitral Valve Moderate mitral annular calcification. Trace mitral regurgitation. Aortic Valve Likely mechanical aortic valve. Not well visualized. No significant stenosis. Mild aortic regurgitation. DVI is normal and is 0.55. Tricuspid Valve Insufficient TR jet to calculate RVSP Pulmonic Valve Not well visualized Pericardium Normal Aorta Not well visualized IVC Appars to be normal CONCLUSIONS LV systolic function is normal with EF of 55-60% Left atrial dilation Trace mitral regurgitation Likely mechanical aortic valve is seen. Mild aortic regurgitation. DVI is normal and is 0.55. Compared to prior echocardiogram from 2019, no significant changes are seen Josue Pulliam MD (Electronically Signed) Final Date: 24 Mar 2024 08:39 S
== END 2024-03-19 07:54 | disposition home or self-care (01) ==
LOC: RAD 07:53
PROVIDERS: PCP Family Medicine; Visit Provider Nurse Practitioner Family
DX: Z95.2 Presence of prosthetic heart valve (principal); I35.1 Nonrheumatic aortic (valve) insufficiency
CPT/HCPCS: 93306

== ENCOUNTER → 2024-04-02 08:08 | Outpatient (BNVA) | payer OTHER, SELFPAY | PROVIDERS: PCP Family Medicine; Visit Provider Internal Medicine | DX: Z95.2 Presence of prosthetic heart valve (principal) | CPT/HCPCS: 85610 ==

== ENCOUNTER 2024-04-24 14:39 | Outpatient (CLI) | payer OTHER, SELFPAY ==
[2024-04-24 15:07] LABS: Add Urine Microscopic? YES; Bilirubin Urine Neg (Negative); Blood Urine Neg (Negative); Glucose Urine UA Norm (Normal); Ketones Urine Negative (Negative); Leukocyte Esterase Urine 1+ (Negative); Nitrate Urine Negative (Negative); Protein Urine Neg (Negative); Specific Gravity, Urine 1.015 (1.005-1.030); Urine Appearance Clear (CLEAR); Urine Color Yellow (Yellow); Urobilinogen Urine Norm (Negative); pH Urine 6 (5-7)
[2024-04-24 15:08] LABS: Bacteria Urine TRACE /hpf; RBC Urine 0-4 /hpf (0-2); Squamous Epithelial Cell Urine 0-4 /hpf (0-5); WBC Urine 0-4 /hpf (0-5)
== END 2024-04-24 14:40 | disposition home or self-care (01) ==
LOC: LAB 14:42
PROVIDERS: PCP Family Medicine; Visit Provider Family Medicine
DX: R30.0 Dysuria (principal)
CPT/HCPCS: 81001; 87086

== ENCOUNTER → 2024-04-30 08:42 | Outpatient (BNVA) | payer OTHER, SELFPAY | PROVIDERS: PCP Family Medicine; Visit Provider Internal Medicine | DX: Z95.2 Presence of prosthetic heart valve (principal) | CPT/HCPCS: 85610 ==

== ENCOUNTER → 2024-06-03 08:29 | Outpatient (BNVA) | payer OTHER, SELFPAY | PROVIDERS: PCP Family Medicine; Visit Provider Internal Medicine | DX: Z95.2 Presence of prosthetic heart valve (principal) | CPT/HCPCS: 85610 ==

== ENCOUNTER → 2024-07-01 08:30 | Outpatient (BNVA) | payer OTHER, SELFPAY | PROVIDERS: PCP Family Medicine; Visit Provider Internal Medicine | DX: Z95.2 Presence of prosthetic heart valve (principal) | CPT/HCPCS: 85610 ==

== ENCOUNTER → 2024-07-29 08:36 | Outpatient (BNVA) | payer OTHER, SELFPAY | PROVIDERS: PCP Family Medicine; Visit Provider Internal Medicine | DX: Z95.2 Presence of prosthetic heart valve (principal) | CPT/HCPCS: 85610 ==

== ENCOUNTER 2024-08-11 07:08 | Outpatient (CLI) | payer OTHER, SELFPAY ==
[2024-08-11 07:52] LABS: Monocytes # 0.5 10^3/uL (0.2-0.9); Nucleated Red Blood Cells % 0 %; Red Cell Distribution Width 14.6 % (12.1-15.1)
[2024-08-11 07:57] LABS: Basophils # 0.1 10^3/uL (0.0-0.1); Basophils % 1.2 %; Eosinophils # 0.2 10^3/uL (0.0-0.8); Eosinophils % 2.5 %; Hematocrit 41.2 % (36-47); Lymphocytes # 1.4 10^3/uL (0.8-4.8); Lymphocytes % 17.2 %; Mean Corpuscular HGB Conc 30.6 g/dL (30-55); Mean Corpuscular Hemoglobin 28.1 pg (27-33); Mean Platelet Volume 14.2 fL (7.4-10.4); Monocytes % 6.3 %; Neutrophils # 5.84 10^3/uL (1.8-7.7); Neutrophils % 72.7 %; Platelet Count 223 10^3/cmm (157-399); Red Blood Count 4.48 10^6/uL (3.85-5.65); White Blood Count 8.04 10^3/uL (3.29-11.43)
[2024-08-11 08:10] LABS: Anion Gap 11.6 (5-19); Blood Urea Nitrogen 18 mg/dL (6-20); Calcium 8.4 mg/dL (8.5-10.5); Carbon Dioxide 29 mmol/L (22-29); Chloride 102 mmol/L (98-107); Glomerular Filtration Rate 64.3 mL/min (90-130); Glucose 99 mg/dL (65-115); Osmolality Calculated 288 mOsm/kg (285-295); Potassium 4.6 mmol/L (3.5-5.1); Sodium 138 mmol/L (136-145)
[2024-08-11 08:30] LABS: Slide Review Slide Review Perform
== END 2024-08-11 07:09 | disposition home or self-care (01) ==
LOC: LAB 07:10
PROVIDERS: PCP Family Medicine; Visit Provider Internal Medicine
DX: I10 Essential (primary) hypertension (principal); R00.0 Tachycardia, unspecified; R07.9 Chest pain, unspecified; R53.83 Other fatigue
CPT/HCPCS: 36415; 80048; 82652; 85025

== ENCOUNTER → 2024-08-21 19:23 | Outpatient (BNVA) | payer OTHER, SELFPAY | PROVIDERS: PCP Family Medicine; Visit Provider Family Medicine | DX: R05.9 Cough, unspecified (principal) | CPT/HCPCS: 87400 ==

== ENCOUNTER → 2024-09-08 14:23 | Outpatient (BNVA) | payer OTHER, SELFPAY | PROVIDERS: PCP Family Medicine; Visit Provider Internal Medicine | DX: Z95.2 Presence of prosthetic heart valve (principal) | CPT/HCPCS: 85610 ==

== ENCOUNTER 2024-09-17 09:16 | Outpatient (CLI) | payer OTHER, SELFPAY ==
--- NOTE | 2024-09-17 09:30 | USCV_ITS ---
Whitney Magallanes Age: 59 Gender: F : 1965 Exam Date: 09/17/2024 09:46 Ordering Phys: Shazia Boo Technologist: CT Exam Location: [facility] [place] Indication: HISTORY: PROCEDURES: FINDINGS: The veins are found to be easily compressible with the spontaneous flow. The greater saphenous vein on the right side was measuring anywhere from 0.1 to 0.3 cm in diameter. The venous segments were found to be greater than 1 cm deep from the surface. No insufficiency was noted. On the left side, the greater saphenous vein was measuring anywhere from 0.15 to 0.4 cm in diameter. The small saphenous vein 0.2 cm in diameter. These venous segments were more than 1 cm deep from the surface. CONCLUSIONS 1. No evidence of DVT intervention identifiable veins. 2. Relatively small caliber greater saphenous and mall saphenous veins bilaterally. 3. The superficial veins are found to be greater than 1 cm deep from the surface bilaterally 4. No significant reflux were noted either in the superficial or in the deep veins Dr Ciaran Prater MD [facility] (Electronically Signed) Final Date: 18 September 2024 18:15 S
== END 2024-09-17 09:17 | disposition home or self-care (01) ==
LOC: RAD 09:17
PROVIDERS: PCP Family Medicine; Visit Provider Nurse Practitioner Family
DX: I87.2 Venous insufficiency (chronic) (peripheral) (principal)
CPT/HCPCS: 93970

== ENCOUNTER → 2024-10-06 07:58 | Outpatient (BNVA) | payer OTHER, SELFPAY | PROVIDERS: PCP Family Medicine; Visit Provider Internal Medicine | DX: Z95.2 Presence of prosthetic heart valve (principal) | CPT/HCPCS: 85610 ==

== ENCOUNTER → 2024-11-03 08:35 | Outpatient (BNVA) | payer OTHER, SELFPAY | PROVIDERS: PCP Family Medicine; Visit Provider Internal Medicine | DX: Z95.2 Presence of prosthetic heart valve (principal) | CPT/HCPCS: 85610 ==

== ENCOUNTER → 2024-12-01 08:03 | Outpatient (BNVA) | payer OTHER, SELFPAY | PROVIDERS: PCP Family Medicine; Visit Provider Internal Medicine | DX: Z95.2 Presence of prosthetic heart valve (principal) | CPT/HCPCS: 85610 ==

== ENCOUNTER 2024-12-25 11:35 | Outpatient (CLI) | payer OTHER, SELFPAY ==
--- NOTE | 2024-12-25 11:30 | XR_ITS ---
WS: [id number] XR shoulder LT min 2V* [id number] REASON FOR EXAM: PAIN IN LEFT ARM FINDINGS: No fracture or focal bone lesion. Moderate narrowing of the acromioclavicular joint with mild to moderate subchondral sclerosis and osteophytosis. Glenohumeral joint space is not well demonstrated but does not appear to be significantly narrowed. There is mild subchondral sclerosis of the glenoid with minimal osteophytosis of the humeral head. There is moderate sclerotic and cystic change in the greater biceps tuberosity. XR/XR shoulder LT min 2V* [id number] IMPRESSION: Moderate osteoarthritis in the acromioclavicular joint. Mild osteoarthritis in the glenohumeral joint. Moderate rotator cuff tendon arthropathy.
== END 2024-12-25 11:36 | disposition home or self-care (01) ==
LOC: RAD 11:35
PROVIDERS: PCP Family Medicine; Visit Provider Nurse Practitioner Family
DX: M79.602 Pain in left arm (principal); M25.512 Pain in left shoulder; M19.012 Primary osteoarthritis, left shoulder; R93.6 Abnormal findings on diagnostic imaging of limbs
CPT/HCPCS: 73030

== ENCOUNTER → 2024-12-29 08:24 | Outpatient (BNVA) | payer OTHER, SELFPAY | PROVIDERS: PCP Family Medicine; Visit Provider Internal Medicine | DX: Z95.2 Presence of prosthetic heart valve (principal) | CPT/HCPCS: 85610 ==

== ENCOUNTER → 2025-01-26 08:53 | Outpatient (BNVA) | payer OTHER, SELFPAY | PROVIDERS: PCP Family Medicine; Visit Provider Internal Medicine | DX: Z95.2 Presence of prosthetic heart valve (principal) | CPT/HCPCS: 85610 ==

== ENCOUNTER → 2025-02-23 08:05 | Outpatient (BNVA) | payer OTHER, SELFPAY | PROVIDERS: PCP Family Medicine; Visit Provider Internal Medicine | DX: Z95.2 Presence of prosthetic heart valve (principal) | CPT/HCPCS: 85610 ==

== ENCOUNTER → 2025-03-23 09:10 | Outpatient (BNVA) | payer OTHER, SELFPAY | PROVIDERS: PCP Family Medicine; Visit Provider Internal Medicine | DX: Z95.2 Presence of prosthetic heart valve (principal) | CPT/HCPCS: 85610 ==

== ENCOUNTER → 2025-04-20 08:10 | Outpatient (BNVA) | payer OTHER, SELFPAY | PROVIDERS: PCP Family Medicine; Visit Provider Internal Medicine | DX: Z95.2 Presence of prosthetic heart valve (principal) | CPT/HCPCS: 85610 ==

== ENCOUNTER → 2025-06-22 09:49 | Outpatient (BNVA) | payer OTHER, SELFPAY | PROVIDERS: PCP Nurse Practitioner Family | DX: Z95.2 Presence of prosthetic heart valve (principal) | CPT/HCPCS: 85610 ==

== ENCOUNTER 2025-06-24 08:40 | Outpatient (CLI) | payer OTHER, SELFPAY ==
--- NOTE | 2025-06-24 09:14 | MM_ITS ---
WS: [email or web address] BILATERAL SCREENING DIGITAL TOMOSYNTHESIS MAMMOGRAM WITH CAD HISTORY: SCREENING COMPARISON: 06/27/2023, 07/30/2018 Bilateral CC and MLO views with tomosynthesis and synthetic mammography submitted. Computer aided detection analyzed. Breast composition: There are scattered areas of fibroglandular density. No suspicious masses, microcalcifications or architectural distortion. Benign round calcifications RIGHT breast. No suspicious grouping of calcifications. MM/MM scr BI tomosynthesis [id number] IMPRESSION: BI-RADS: 2 - Benign. FOLLOW UP: 1 Year Follow-up
== END 2025-06-24 08:41 | disposition home or self-care (01) ==
LOC: RAD 08:41
PROVIDERS: PCP Nurse Practitioner Family; Visit Provider Nurse Practitioner Family
DX: Z12.31 Encounter for screening mammogram for malignant neoplasm of breast (principal); R92.323 Mammographic fibroglandular density, bilateral breasts; R92.1 Mammographic calcification found on diagnostic imaging of breast
CPT/HCPCS: 77063; 77067

== ENCOUNTER → 2025-07-06 08:00 | Outpatient (BNVA) | payer OTHER, SELFPAY | PROVIDERS: PCP Nurse Practitioner Family; Visit Provider Internal Medicine | DX: Z95.2 Presence of prosthetic heart valve (principal) | CPT/HCPCS: 85610 ==

== ENCOUNTER → 2025-07-21 13:59 | Outpatient (BNVA) | payer OTHER, SELFPAY | PROVIDERS: PCP Nurse Practitioner Family; Visit Provider Internal Medicine | DX: Z95.2 Presence of prosthetic heart valve (principal); R07.9 Chest pain, unspecified; R06.02 Shortness of breath | CPT/HCPCS: 85610 ==

== ENCOUNTER → 2025-07-27 08:14 | Outpatient (BNVA) | payer OTHER, SELFPAY | PROVIDERS: PCP Nurse Practitioner Family; Visit Provider Internal Medicine | DX: Z95.2 Presence of prosthetic heart valve (principal) | CPT/HCPCS: 85610 ==

== ENCOUNTER → 2025-08-24 08:20 | Outpatient (BNVA) | payer OTHER, SELFPAY | PROVIDERS: PCP Nurse Practitioner Family; Visit Provider Internal Medicine | DX: Z95.2 Presence of prosthetic heart valve (principal) | CPT/HCPCS: 85610 ==

== ENCOUNTER → 2025-08-31 08:18 | Outpatient (BNVA) | payer OTHER, SELFPAY | PROVIDERS: PCP Nurse Practitioner Family; Visit Provider Internal Medicine | DX: Z95.2 Presence of prosthetic heart valve (principal) | CPT/HCPCS: 85610 ==

== ENCOUNTER 2025-10-07 05:55 | Outpatient (CLI) | payer OTHER, SELFPAY ==
--- NOTE | 2025-10-07 06:15 | USCV_ITS ---
Whitney Magallanes Age: 60 Gender: F : 1965 Exam Date: 10/07/2025 06:13 Ordering Phys: Josue Pulliam M.D ([email or web address]) Technologist: Karson Wong Exam Location: [facility] [place] Indication: pros mechanical ao BP: 130 / 80 HR: 70 Rhythm: Sinus Technical Quality: Adequate MEASUREMENTS (Male / Female) Normal Values 2D ECHO LV Diastolic Diameter PLAX 3.4 cm 4.2 - 5.9 / 3.9 - 5.3 cm IVS Diastolic Thickness 1.9 cm 0.6 - 1.0 / 0.6 - 0.9 cm IVS Systolic Thickness 2.1 cm LVPW Diastolic Thickness 1.4 cm 0.6 - 1.0 / 0.6 - 0.9 cm LVPW Systolic Thickness 1.7 cm LVOT Diameter 2.1 cm LV Ejection Fraction 2D Teich 64.8 % LV Ejection Fraction MOD 4C 65.6 % LV Ejection Fraction MOD 2C 68.5 % LV Ejection Fraction 2C AL 69.8 % LA Diameter 3.9 cm RA Systolic Volume 4C AL 35.7 ml RA Systolic Volume 4C MOD 33.8 ml LA Sys Volume AL 69.0 cm cubed LA Sys Volume Index AL 35.4 cm cubed/m squared Aorta at Sinotubular Diameter 3.6 cm DOPPLER AV Peak Velocity 214.0 cm/s LVOT Peak Velocity 95.0 cm/s AV Area Cont Eq vti 1.6 cm squared AV Area Cont Eq pk 1.5 cm squared MV Peak Velocity 184.0 cm/s MV Area PHT 5.4 cm squared Mitral E to A Ratio 1.3 TR Peak Velocity 172.0 cm/s TR Peak Gradient 11.8 mmHg TV Peak E Velocity 152.0 cm/s PV Peak Velocity 88.0 cm/s FINDINGS Left Ventricle Left ventricular is normal in size. LV systolic function is normal with EF of 60-65%. No regional wall motion abnormalities are seen. Moderate left ventricular hypertrophy Right Ventricle Normal right ventricular size and systolic function. Right Atrium Normal right atrial size. Left Atrium Dilated IA Septum Grossly normal Mitral Valve Mild mitral annular calcification. Mild mitral regurgitation Aortic Valve Likely mechanical aortic valve. Moderate aortic regurgitation. DVI is normal and is 0.46 Tricuspid Valve Insufficient TR jet to calculate RVSP Pulmonic Valve Mild pulmonic regurgitation. Pericardium Normal Aorta Normal in size IVC Not well visualized CONCLUSIONS LV systolic pressure normal with EF of 60-65%. Moderate left ventricle hypertrophy Left atrial dilation Mild mitral regurgitation Mechanical aortic valve is functioning appropriately. Moderate aortic regurgitation. Josue Pulliam MD (Electronically Signed) Final Date: 20 October 2025 12:22 S
== END 2025-10-07 05:56 | disposition home or self-care (01) ==
LOC: RAD 05:56
PROVIDERS: PCP Family Medicine; Visit Provider Internal Medicine
DX: Z95.2 Presence of prosthetic heart valve (principal); I10 Essential (primary) hypertension; R07.9 Chest pain, unspecified; I51.7 Cardiomegaly; I34.81 Nonrheumatic mitral (valve) annulus calcification; I34.0 Nonrheumatic mitral (valve) insufficiency; R93.1 Abnormal findings on diagnostic imaging of heart and coronary circulation; I35.1 Nonrheumatic aortic (valve) insufficiency; I37.1 Nonrheumatic pulmonary valve insufficiency
CPT/HCPCS: 93306

== ENCOUNTER → 2025-10-14 11:15 | Outpatient (BNVA) | payer OTHER, SELFPAY | PROVIDERS: PCP Family Medicine; Visit Provider Family Medicine | DX: E78.5 Hyperlipidemia, unspecified (principal); E03.9 Hypothyroidism, unspecified; I10 Essential (primary) hypertension; R51.9 Headache, unspecified; E55.9 Vitamin D deficiency, unspecified | CPT/HCPCS: 80053; 80061; 82306; 84443; 85651; 86140 ==

== ENCOUNTER → 2025-10-26 07:59 | Outpatient (BNVA) | payer OTHER, SELFPAY | PROVIDERS: PCP Family Medicine; Visit Provider Internal Medicine | DX: Z95.2 Presence of prosthetic heart valve (principal) | CPT/HCPCS: 85610 ==